=== PATIENT | female | born 1975 | race Caucasian/White ===

== ENCOUNTER 2022-01-15 15:55 | Emergency (ER) | payer MEDICAID ==
[2022-01-15 16:21] LABS: BASOPHILS # (AUTO) 0.1 10^3/uL (0.0-0.1); BASOPHILS % (AUTO) 0.3 %; HCT - HEMATOCRIT 42.2 % (37.0-47.0); HGB - HEMOGLOBIN 14.5 g/dL (12.0-16.0); LYMPHOCYTES # (AUTO) 0.8 10^3/uL (1.5-3.5); LYMPHOCYTES % (AUTO) 4.6 %; MEAN CORPUSCULAR HEMOGLOBIN 31.9 pg (27.0-31.0); MEAN CORPUSCULAR HGB CONC 34.4 g/dL (32.0-36.0); MEAN CORPUSCULAR VOLUME 92.7 fL (81.0-99.0); MEAN PLATELET VOLUME 10.2 fL (7.9-10.8); MONOCYTES % (AUTO) 6.1 %; NEUTROPHILS # (AUTO) 14.3 10^3/uL (1.5-6.6); NEUTROPHILS % (AUTO) 88.6 %; PLT - PLATELET COUNT 324 10^3/uL (130-450); RED BLOOD COUNT 4.55 10^6/uL (4.20-5.40); RED CELL DISTRIBUTION WIDTH 12.2 % (12.0-15.0); WHITE BLOOD COUNT 16.1 x10^3/uL (4.8-10.8)
[2022-01-15 16:36] LABS: ALBUMIN 4.9 g/dL (3.2-5.5); ALBUMIN/GLOBULIN RATIO 1.6 (1.0-2.2); BILIRUBIN,TOTAL 1.5 mg/dL (0.2-1.0); CALCIUM 10.1 mg/dL (8.5-10.3); POTASSIUM 3.6 mmol/L (3.5-5.0); TOTAL PROTEIN 7.9 g/dL (6.7-8.2)
[2022-01-15] MEDS ORDERED: DROPERIDOL 5 MG/2 ML VIAL IVP STA (16:49)
[2022-01-15] MEDS ORDERED: MORPHINE 2 MG/ML CARPUJECT IVP STA (16:49)
[2022-01-15] MEDS ORDERED: SODIUM CHLORIDE 0.9% 1,000 ML IV STA (16:50)
--- NOTE | 2022-01-15 17:57 | ED Physician Documentation ---
PD HPI ABD PAIN - Stated complaint Stated Complaint: ABD PX,VOMIT - Chief complaint Chief Complaint: Abd Pain - History obtained from History obtained from: Patient - History of Present Illness Timing - onset: Today Timing - duration: Days (1) Timing - details: Abrupt onset Pain level max: 9 Pain level now: 9 Quality: Aching, Pain Location: All over / everywhere Improved by: Vomiting Worsened by: Moving Associated symptoms: Nausea, Vomiting, Diarrhea Recently seen: Not recently seen - Additional information Additional information: 46-year-old female presents the emergency department complaining of nausea, vomiting, diarrhea. Started today. She uses marijuana multiple times daily. Symptoms occur 1-2 times per week. Has never been seen for this. She states warm showers normally help. No fevers. No chills. No recent antibiotics. No recent travel. Review of Systems Constitutional: denies: Fever, Chills Respiratory: denies: Cough GI: reports: Nausea, Vomiting. denies: Hematemesis, Bloody / black stool : denies: Dysuria, Now EGA Skin: denies: Rash Musculoskeletal: denies: Neck pain, Back pain Neurologic: denies: Headache PD PAST MEDICAL HISTORY - Past Medical History Past Medical History: Yes Psych: Anxiety - Present Medications Home Medications: Ambulatory Orders Medication Instructions Recorded Confirmed Escitalopram Oxalate 20 mg PO DAILY 01/15/22 01/15/22 Promethazine [Phenergan] 25 mg PO Q6H PRN #10 tab 01/15/22 haloperidoL [Haloperidol] 5 mg PO DAILY PRN #7 tablet 01/15/22 - Allergies Allergies/Adverse Reactions: Allergies Allergy/AdvReac Type Severity Reaction Status Date / Time No Known Drug Allergies Allergy Verified 01/15/22 16:00 - Living Situation Living Situation: reports: With family Living Arrangement: reports: At home - Social History Does the pt smoke?: Yes Smoking Status: Current every day smoker Does the pt have substance abuse?: Yes Substance Use and Type: Marijuana PD ED PE NORMAL - Vitals Vital signs reviewed: Yes - General General: Alert and oriented X 3, No acute distress - HEENT HEENT: PERRL, Moist mucous membranes - Neck Neck: Supple, no meningeal sign - Cardiac Cardiac: RRR, Strong equal pulses - Respiratory Respiratory: No respiratory distress, Clear bilaterally - Abdomen Abdomen: Soft, Non tender, Non distended - Derm Derm: Warm and dry - Extremities Extremities: No edema - Neuro Neuro: Alert and oriented X 3 - Psych Psych: Normal mood, Normal affect Results - Vitals Vitals: Vital Signs - 24 hr 01/15/22 01/15/22 01/15/22 16:00 16:23 17:58 Temperature 36.5 C Heart Rate 80 88 73 Respiratory 24 27 H 14 Rate Blood Pressure 127/83 H 129/67 94/70 O2 Saturation 96 100 97 01/15/22 18:10 Temperature 36.6 C Heart Rate 90 Respiratory 14 Rate Blood Pressure 98/58 L O2 Saturation 97 Oxygen O2 Source Room air - Labs Labs: Laboratory Tests 01/15/22 01/15/22 01/15/22 16:16 16:16 17:50 WBC 16.1 H RBC 4.55 Hgb 14.5 Hct 42.2 MCV 92.7 MCH 31.9 H MCHC 34.4 RDW 12.2 Plt Count 324 MPV 10.2 Neut # (Auto) 14.3 H Lymph # (Auto) 0.8 L [place] # (Auto) 1.0 Eos # (Auto) 0.0 Baso # (Auto) 0.1 Absolute Nucleated RBC 0.00 Nucleated RBC % 0.0 Sodium 140 Potassium 3.6 Chloride 102 Carbon Dioxide 21 Anion Gap 17.0 H BUN 21 H Creatinine 1.0 Estimated GFR (MDRD) 59 L Glucose 159 H Calcium 10.1 Total Bilirubin 1.5 H AST 42 ALT 54 Alkaline Phosphatase 93 Total Protein 7.9 Albumin 4.9 Globulin 3.0 Albumin/Globulin Ratio 1.6 Lipase 25 Urine Color YELLOW Urine Clarity CLEAR Urine pH 6.0 Ur Specific [place] 1.025 Urine Protein TRACE Urine Glucose (UA) NEGATIVE Urine Ketones >=80 H Urine Occult Blood SMALL H Urine Nitrite POSITIVE H Urine Bilirubin NEGATIVE Urine Urobilinogen 0.2 (NORMAL) Ur Leukocyte Esterase NEGATIVE Urine RBC 0-5 Urine WBC 0-3 Ur Squamous Epith Cells MOD Squamous H Urine Bacteria Few Ur Microscopic Review INDICATED Urine Culture Comments NOT INDICATED PD MEDICAL DECISION MAKING - ED course Complexity details: reviewed results, re-evaluated patient, considered differential, d/w patient, d/w family ED course: Symptoms resolved with IV droperidol. Feels much better. Tolerating p.o. without difficulty. Was also given saline. We will place on antiemetics for home. Patient appears to have cannabinoid hyperemesis syndrome. Counseled to stop utilizing marijuana. Patient is well-appearing, nontoxic. Afebrile. Abdomen is soft, nontender nondistended on serial exam. Patient counseled regarding signs and symptoms for which I believe and urgent re-evaluation would be necessary. Patient with good understanding of and agreement to plan and is comfortable going home at this time This document was made in part using voice recognition software. While efforts are made to proofread this document, sound alike and grammatical errors may occur. Departure - Departure Disposition: 01 Home, Self Care Clinical Impression: Cannabinoid hyperemesis syndrome Vomiting Qualifiers: Vomiting type: unspecified Nausea presence: with nausea Qualified Code(s): R11.2 - Nausea with vomiting, unspecified Condition: Good Instructions: ED Nausea Vomiting Follow-Up: your,doctor in 1 week [Other] Prescriptions: haloperidoL [Haloperidol] 5 mg PO DAILY PRN #7 tablet PRN Reason: vomiting Promethazine [Phenergan] 25 mg PO Q6H PRN #10 tab PRN Reason: Nausea / Vomiting Comments: Please follow-up with your doctor for further care. Your prescriptions were s ent to [facility] in [place]. Drink plenty of fluids. Please refrain from any cannabis use. You appear to be suffering from cannabinoid induced hyperemesis syndrome. Discharge Date/Time: 01/15/22 18:10
[2022-01-15 18:00] LABS: BILIRUBIN,URINE NEGATIVE (NEGATIVE); GLUCOSE, URINE (UA) NEGATIVE (NEGATIVE); KETONES,URINE (UA) >=80 mg/dL (NEGATIVE); LEUKOCYTE ESTERASE, URINE NEGATIVE (NEGATIVE); NITRITE,URINE POSITIVE (NEGATIVE); OCCULT BLOOD,URINE SMALL (NEGATIVE); PROTEIN,URINE TRACE mg/dL (NEGATIVE); UROBILINOGEN,URINE 0.2 (NORMAL) E.U./dL (NORMAL)
[2022-01-15 18:04] LABS: BACTERIA,URINE Few /HPF (None Seen); CLARITY,URINE CLEAR (CLEAR); RBC,URINE 0-5 /HPF (0-5); SQUAMOUS EPITHELIAL CELL,UR MOD Squamous (<= Few)
[2022-01-15 18:05] LABS: WBC,URINE 0-3 /HPF (0-5)
[2022-01-15 18:11] VITALS: BP 98/58
== END 2022-01-15 18:10 | disposition home or self-care (01) ==
LOC: ED 15:55
DX: R11.2 Nausea with vomiting, unspecified (principal); F17.200 Nicotine dependence, unspecified, uncomplicated
CPT/HCPCS: 36415; 80053; 81001; 81003; 83690; 85025; 87086; 96374; 99284